=== PATIENT | male | born 1960 | race Caucasian/White ===

== ENCOUNTER 2024-08-24 14:18 | Inpatient (IN) | payer MEDICARE ==
[2024-08-24 14:55] LABS: BASOPHILS PERCENT AUTO 0.1 % (0.0-1.0); EOSINOPHILS PERCENT AUTO 0.1 % (0.0-6.0); HEMATOCRIT 44.2 % (42.0-52.0); HEMOGLOBIN 14.1 gm/dl (14.0-18.0); IMMATURE GRAN ABSOLUTE AUTO 0.03 K/mm3 (0.00-0.05); IMMATURE GRAN PERCENT AUTO 0.2 % (0.0-0.4); LYMPHOCYTES ABSOLUTE AUTO 0.9 K/mm3 (1.0-4.8); LYMPHOCYTES PERCENT AUTO 6.6 % (24.0-44.0); MEAN CORPUSCULAR HEMOGLOBIN 27.5 pg (28.0-32.0); MEAN CORPUSCULAR HGB CONC 31.9 g/dl (32.0-36.0); MEAN CORPUSCULAR VOLUME 86.3 fl (83.0-99.0); MEAN PLATELET VOLUME 9.6 fl (9.4-12.4); MONOCYTES ABSOLUTE AUTO 0.5 K/mm3 (0.0-0.8); MONOCYTES PERCENT AUTO 3.9 % (0.0-8.0); NEUTROPHILS PERCENT AUTO 89.1 % (41.0-71.0); PLATELET COUNT,PLT 295 K/mm3 (150-400); RED BLOOD CELL COUNT 5.12 M/mm3 (4.52-5.90); WHITE BLOOD CELL COUNT,WBC 13.46 K/mm3 (3.9-11.3)
[2024-08-24] MEDS: HYDROmorphone 0.5 MG/0.5 ML Syringe IVPUSH ONE ×2 (15:03→16:33)
[2024-08-24] MEDS: Sodium Chloride 0.9% 10 ML Syringe FLUSH PRN (15:04)
[2024-08-24] MEDS: Ondansetron 4 MG/2 ML SDV IVPUSH ONE (15:04)
[2024-08-24] MEDS: Sodium Chloride 0.9% 1,000 ML IV STA (15:04)
[2024-08-24 15:14] LABS: ALBUMIN 3.7 g/dl (3.4-5.0); ANION GAP 10.6 (5-15); BILIRUBIN TOTAL 0.4 mg/dL (0.2-1.0); BUN/CREATININE RATIO 17.3 (14-18); C-REACTIVE PROTEIN 0.82 mg/dL (<0.30); CALCIUM 9.5 mg/dL (8.5-10.1); CREATININE 1.5 mg/dL (0.7-1.3); EST CRCL DRUG DOSING (CG) 45.9 mL/min; POTASSIUM,K 4.6 mEq/L (3.5-5.1); PROTEIN TOTAL,TP 7.3 g/dl (6.4-8.2)
[2024-08-24] MEDS: Iopamidol 612 MG/ML 100 ML Bottle IVPUSH ONE (15:50)
[2024-08-24] MEDS: Sodium Chloride 0.9% 10 ML Syringe FLUSH ONE (15:50)
[2024-08-24] MEDS ORDERED: cefTRIAXone 1,000 MG in Sodium Chloride 0.9% 50 ML IV ONE (17:43)
[2024-08-24] MEDS ORDERED: Morphine PF 10 MG/10 ML SDV ONE (18:04)
[2024-08-24] MEDS: metroNIDAZOLE/Normal Saline 500 MG in Premix Bag 1 BAG IV ONE (18:10)
[2024-08-24 18:18] LABS: INR 1.03; PROTHROMBIN TIME 10.9 SECONDS (9.7-12.0)
[2024-08-24] MEDS: Heparin Sodium 5,000 Units/ML Vial SUBCUT ONE (18:29)
[2024-08-24] MEDS ORDERED: Midazolam 1 MG/ML 2 ML SDV ONE (18:32)
[2024-08-24] MEDS ORDERED: fentaNYL 250 MCG/5 ML SDV ONE (18:32)
[2024-08-24] MEDS ORDERED: dexmedeTOMIDine HCl 200 MCG/2 ML SDV ONE (18:32)
[2024-08-24] MEDS ORDERED: Rocuronium 50 MG/5 ML Vial ONE ×4 (18:33→21:53)
[2024-08-24] MEDS ORDERED: Sodium Chloride 0.9% 100 ML ONE ×2 (18:33→19:43)
[2024-08-24] MEDS ORDERED: propofoL 500 MG/50 ML 50 ML ONE ×3 (18:33→21:08)
[2024-08-24] MEDS ORDERED: Glycopyrrolate 0.2 MG/ML 2 ML SDV ONE (18:33)
[2024-08-24] MEDS ORDERED: Dexamethasone 4 MG/ML 5 ML MDV ONE (18:33)
[2024-08-24 18:46] LABS: APPEARANCE,URINE CLEAR (Clear); BILIRUBIN,URINE NEGATIVE (Negative); COLOR,URINE YELLOW (Yellow); GLUCOSE,URINE NEGATIVE (Negative); KETONES,URINE TRACE (Negative); LEUKOCYTE ESTERASE,URINE NEGATIVE (Negative); NITRITE,URINE NEGATIVE (Negative); OCCULT BLOOD,URINE NEGATIVE (Negative); PH,URINE 5.5 (5.0-8.0); PROTEIN,URINE NEGATIVE (Negative); UROBILINOGEN,URINE 0.2 (0.2-1.0)
[2024-08-24] MEDS ORDERED: Lactated Ringers 1,000 ML IV ONE (19:00)
[2024-08-24] MEDS ORDERED: cefTRIAXone 1 GM Vial ONE (19:00)
[2024-08-24] MEDS ORDERED: Ketamine 200 MG/20 ML MDV ONE (19:32)
[2024-08-24] MEDS ORDERED: ePHEDrine 50 MG/ML SDV ONE (19:42)
[2024-08-24] MEDS ORDERED: Phenylephrine 1% 10 MG/ML SDV ONE (19:44)
[2024-08-24] MEDS ORDERED: Lactated Ringers 1,000 ML ONE ×2 (20:11→21:35)
[2024-08-24] MEDS ORDERED: Sugammadex Sodium 200 MG/2 ML VIAL IV ONE (22:30)
[2024-08-24] MEDS ORDERED: Morphine 2 MG/ML SYRINGE IVPUSH PRN (23:01)
[2024-08-24] MEDS ORDERED: Morphine 4 MG/ML Syringe IVPUSH PRN ×2 (23:02→23:03)
[2024-08-24] MEDS ORDERED: Sodium Chloride 0.9% 10 ML Syringe FLUSH PRN (23:14)
[2024-08-24] MEDS ORDERED: Ondansetron 4 MG/2 ML SDV IVPUSH PRN (23:14)
[2024-08-24] MEDS ORDERED: HYDROmorphone 0.5 MG/0.5 ML Syringe IVPUSH PRN (23:14)
[2024-08-24] MEDS ORDERED: fentaNYL 100 MCG/2 ML SDV IVPUSH PRN (23:14)
[2024-08-24] MEDS ORDERED: Lactated Ringers 1,000 ML IV SCH (23:15)
[2024-08-24 23:34] LABS: BASOPHILS PERCENT AUTO 0.1 % (0.0-1.0); HEMATOCRIT 37.9 % (42.0-52.0); IMMATURE GRAN ABSOLUTE AUTO 0.06 K/mm3 (0.00-0.05); IMMATURE GRAN PERCENT AUTO 0.4 % (0.0-0.4); LYMPHOCYTES ABSOLUTE AUTO 0.5 K/mm3 (1.0-4.8); LYMPHOCYTES PERCENT AUTO 2.9 % (24.0-44.0); MEAN CORPUSCULAR HEMOGLOBIN 27.7 pg (28.0-32.0); MEAN CORPUSCULAR HGB CONC 31.7 g/dl (32.0-36.0); MEAN CORPUSCULAR VOLUME 87.5 fl (83.0-99.0); MEAN PLATELET VOLUME 9.8 fl (9.4-12.4); MONOCYTES ABSOLUTE AUTO 0.7 K/mm3 (0.0-0.8); MONOCYTES PERCENT AUTO 4.5 % (0.0-8.0); NEUTROPHILS ABSOLUTE AUTO 14.8 K/mm3 (1.8-7.7); NEUTROPHILS PERCENT AUTO 92.1 % (41.0-71.0); PLATELET COUNT,PLT 231 K/mm3 (150-400); RED BLOOD CELL COUNT 4.33 M/mm3 (4.52-5.90); WHITE BLOOD CELL COUNT,WBC 16.04 K/mm3 (3.9-11.3)
[2024-08-24 23:48] LABS: ANION GAP 10.3 (5-15); BUN/CREATININE RATIO 16.4 (14-18); CALCIUM 8.3 mg/dL (8.5-10.1); CREATININE 1.4 mg/dL (0.7-1.3); EST CRCL DRUG DOSING (CG) 49.18 mL/min; MAGNESIUM 2.1 mg/dL (1.8-2.4); POTASSIUM,K 4.3 mEq/L (3.5-5.1)
[2024-08-25] MEDS: Lactated Ringers 1,000 ML IV SCH (00:26)
[2024-08-25] MEDS: Piperacillin/Tazobactam 4.5 GM in Sodium Chloride 0.9% 100 ML IV ONE (00:29)
[2024-08-25] MEDS: Ketorolac 15 MG/ML SDV IVPUSH SCH (00:33)
[2024-08-25 00:35] LABS: SLIDE REVIEW ABNORMAL SMEAR
[2024-08-25] MEDS: Heparin Sodium 5,000 Units/ML Vial SUBCUT SCH (00:54)
[2024-08-25] MEDS: cefTRIAXone 1 GM Vial IV ONE (01:02)
[2024-08-25] MEDS ORDERED: Piperacillin/Tazobactam 4.5 GM in Sodium Chloride 0.9% 100 ML IV SCH ×2 (04:00→08:00)
[2024-08-25] MEDS: Lactated Ringers 500 ML IV ONE ×2 (05:15→10:56)
[2024-08-25] MEDS: Piperacillin/Tazobactam 4.5 GM in Sodium Chloride 0.9% 100 ML IV SCH ×3 (05:30→13:32)
[2024-08-25 05:38] LABS: BASOPHILS PERCENT AUTO 0.1 % (0.0-1.0); HEMATOCRIT 35.1 % (42.0-52.0); HEMOGLOBIN 11.2 gm/dl (14.0-18.0); IMMATURE GRAN ABSOLUTE AUTO 0.08 K/mm3 (0.00-0.05); IMMATURE GRAN PERCENT AUTO 0.5 % (0.0-0.4); LYMPHOCYTES ABSOLUTE AUTO 0.4 K/mm3 (1.0-4.8); LYMPHOCYTES PERCENT AUTO 2.5 % (24.0-44.0); MEAN CORPUSCULAR HEMOGLOBIN 27.9 pg (28.0-32.0); MEAN CORPUSCULAR HGB CONC 31.9 g/dl (32.0-36.0); MEAN CORPUSCULAR VOLUME 87.5 fl (83.0-99.0); MEAN PLATELET VOLUME 10.1 fl (9.4-12.4); MONOCYTES ABSOLUTE AUTO 0.7 K/mm3 (0.0-0.8); MONOCYTES PERCENT AUTO 3.9 % (0.0-8.0); NEUTROPHILS ABSOLUTE AUTO 15.8 K/mm3 (1.8-7.7); PLATELET COUNT,PLT 229 K/mm3 (150-400); RED BLOOD CELL COUNT 4.01 M/mm3 (4.52-5.90); WHITE BLOOD CELL COUNT,WBC 17.04 K/mm3 (3.9-11.3)
[2024-08-25 06:15] LABS: SLIDE REVIEW ABNORMAL SMEAR
[2024-08-25] MEDS ORDERED: Ondansetron 4 MG/2 ML SDV IVPUSH PRN (06:32)
[2024-08-25] MEDS: Pantoprazole 40 MG Vial IVPUSH SCH (08:57)
[2024-08-25] MEDS ORDERED: Sodium Chloride 0.9% 10 ML Syringe FLUSH SCH (09:00)
[2024-08-25 14:24] LABS: BASOPHILS PERCENT AUTO 0.1 % (0.0-1.0); HEMOGLOBIN 11.4 gm/dl (14.0-18.0); IMMATURE GRAN ABSOLUTE AUTO 0.09 K/mm3 (0.00-0.05); IMMATURE GRAN PERCENT AUTO 0.5 % (0.0-0.4); LYMPHOCYTES ABSOLUTE AUTO 0.6 K/mm3 (1.0-4.8); LYMPHOCYTES PERCENT AUTO 3.5 % (24.0-44.0); MEAN CORPUSCULAR HEMOGLOBIN 27.5 pg (28.0-32.0); MEAN CORPUSCULAR HGB CONC 31.7 g/dl (32.0-36.0); MEAN PLATELET VOLUME 9.7 fl (9.4-12.4); MONOCYTES ABSOLUTE AUTO 0.8 K/mm3 (0.0-0.8); MONOCYTES PERCENT AUTO 4.7 % (0.0-8.0); NEUTROPHILS ABSOLUTE AUTO 16.2 K/mm3 (1.8-7.7); NEUTROPHILS PERCENT AUTO 91.2 % (41.0-71.0); PLATELET COUNT,PLT 220 K/mm3 (150-400); RED BLOOD CELL COUNT 4.14 M/mm3 (4.52-5.90); WHITE BLOOD CELL COUNT,WBC 17.72 K/mm3 (3.9-11.3)
[2024-08-25 14:43] LABS: A/G RATIO 0.7 (1-2); ALBUMIN 2.6 g/dl (3.4-5.0); ANION GAP 9.5 (5-15); BILIRUBIN TOTAL 0.7 mg/dL (0.2-1.0); BUN/CREATININE RATIO 16.7 (14-18); CALCIUM 8.8 mg/dL (8.5-10.1); CREATININE 1.5 mg/dL (0.7-1.3); EST CRCL DRUG DOSING (CG) 45.9 mL/min; POTASSIUM,K 4.5 mEq/L (3.5-5.1); PROTEIN TOTAL,TP 6.1 g/dl (6.4-8.2)
[2024-08-25 15:01] LABS: SLIDE REVIEW ABNORMAL SMEAR
[2024-08-26 05:56] LABS: BASOPHILS PERCENT AUTO 0.1 % (0.0-1.0); EOSINOPHILS ABSOLUTE AUTO 0.1 K/mm3 (0.0-0.4); EOSINOPHILS PERCENT AUTO 0.4 % (0.0-6.0); HEMATOCRIT 31.7 % (42.0-52.0); IMMATURE GRAN ABSOLUTE AUTO 0.06 K/mm3 (0.00-0.05); IMMATURE GRAN PERCENT AUTO 0.4 % (0.0-0.4); LYMPHOCYTES PERCENT AUTO 6.8 % (24.0-44.0); MEAN CORPUSCULAR HEMOGLOBIN 27.9 pg (28.0-32.0); MEAN CORPUSCULAR HGB CONC 31.5 g/dl (32.0-36.0); MEAN CORPUSCULAR VOLUME 88.3 fl (83.0-99.0); MEAN PLATELET VOLUME 10.1 fl (9.4-12.4); MONOCYTES ABSOLUTE AUTO 0.8 K/mm3 (0.0-0.8); MONOCYTES PERCENT AUTO 5.8 % (0.0-8.0); NEUTROPHILS ABSOLUTE AUTO 12.3 K/mm3 (1.8-7.7); NEUTROPHILS PERCENT AUTO 86.5 % (41.0-71.0); PLATELET COUNT,PLT 202 K/mm3 (150-400); RED BLOOD CELL COUNT 3.59 M/mm3 (4.52-5.90); WHITE BLOOD CELL COUNT,WBC 14.22 K/mm3 (3.9-11.3)
[2024-08-26 06:14] LABS: ANION GAP 8.2 (5-15); BUN/CREATININE RATIO 18.5 (14-18); CALCIUM 8.6 mg/dL (8.5-10.1); CREATININE 1.3 mg/dL (0.7-1.3); EST CRCL DRUG DOSING (CG) 52.96 mL/min; POTASSIUM,K 4.2 mEq/L (3.5-5.1)
[2024-08-26] MEDS: Lactated Ringers 1,000 ML IV SCH (09:03)
[2024-08-26 20:37] LABS: APPEARANCE,URINE CLOUDY (Clear); BILIRUBIN,URINE 2+ (Negative); COLOR,URINE AMBER (Yellow); GLUCOSE,URINE NEGATIVE (Negative); KETONES,URINE 4+ (Negative); LEUKOCYTE ESTERASE,URINE NEGATIVE (Negative); NITRITE,URINE NEGATIVE (Negative); OCCULT BLOOD,URINE 3+ (Negative); PROTEIN,URINE 3+ (Negative); UROBILINOGEN,URINE 0.2 (0.2-1.0)
[2024-08-26 20:47] LABS: RBC,URINE TOO NUMEROUS TO CNT /hpf (0-5); SQUAMOUS EPITHELIAL CELLS,UR 0-5 /hpf (0-5); WBC,URINE 0-5 /hpf (0-5)
[2024-08-26 20:48] LABS: BACTERIA,URINE MODERATE /hpf (FEW); MUCUS,URINE FEW /hpf (FEW)
[2024-08-27] MEDS: 50% Dextrose in Water 50 ML Syringe IVPUSH PRN (00:43)
[2024-08-27 09:25] LABS: BASOPHILS ABSOLUTE AUTO 0.1 K/mm3 (0.0-0.2); BASOPHILS PERCENT AUTO 0.4 % (0.0-1.0); EOSINOPHILS ABSOLUTE AUTO 0.3 K/mm3 (0.0-0.4); EOSINOPHILS PERCENT AUTO 2.9 % (0.0-6.0); HEMATOCRIT 34.4 % (42.0-52.0); IMMATURE GRAN ABSOLUTE AUTO 0.05 K/mm3 (0.00-0.05); IMMATURE GRAN PERCENT AUTO 0.4 % (0.0-0.4); LYMPHOCYTES ABSOLUTE AUTO 0.9 K/mm3 (1.0-4.8); LYMPHOCYTES PERCENT AUTO 8.1 % (24.0-44.0); MEAN CORPUSCULAR HEMOGLOBIN 27.9 pg (28.0-32.0); MEAN CORPUSCULAR VOLUME 87.3 fl (83.0-99.0); MEAN PLATELET VOLUME 9.8 fl (9.4-12.4); MONOCYTES ABSOLUTE AUTO 0.8 K/mm3 (0.0-0.8); MONOCYTES PERCENT AUTO 7.2 % (0.0-8.0); NEUTROPHILS ABSOLUTE AUTO 9.2 K/mm3 (1.8-7.7); PLATELET COUNT,PLT 228 K/mm3 (150-400); RED BLOOD CELL COUNT 3.94 M/mm3 (4.52-5.90); WHITE BLOOD CELL COUNT,WBC 11.31 K/mm3 (3.9-11.3)
[2024-08-27 09:44] LABS: ANION GAP 13.2 (5-15); BUN/CREATININE RATIO 16.7 (14-18); CALCIUM 8.7 mg/dL (8.5-10.1); CREATININE 1.2 mg/dL (0.7-1.3); EST CRCL DRUG DOSING (CG) 57.38 mL/min; POTASSIUM,K 4.2 mEq/L (3.5-5.1)
[2024-08-27] MEDS: Dextrose 5%-Lactated Ringers 1,000 ML IV SCH (10:57)
[2024-08-28 04:29] LABS: BASOPHILS PERCENT AUTO 0.5 % (0.0-1.0); EOSINOPHILS ABSOLUTE AUTO 0.4 K/mm3 (0.0-0.4); HEMATOCRIT 32.2 % (42.0-52.0); HEMOGLOBIN 10.3 gm/dl (14.0-18.0); IMMATURE GRAN ABSOLUTE AUTO 0.03 K/mm3 (0.00-0.05); IMMATURE GRAN PERCENT AUTO 0.4 % (0.0-0.4); LYMPHOCYTES ABSOLUTE AUTO 1.2 K/mm3 (1.0-4.8); LYMPHOCYTES PERCENT AUTO 14.1 % (24.0-44.0); MEAN CORPUSCULAR HEMOGLOBIN 27.3 pg (28.0-32.0); MEAN CORPUSCULAR VOLUME 85.4 fl (83.0-99.0); MEAN PLATELET VOLUME 9.9 fl (9.4-12.4); MONOCYTES ABSOLUTE AUTO 0.8 K/mm3 (0.0-0.8); MONOCYTES PERCENT AUTO 9.7 % (0.0-8.0); NEUTROPHILS ABSOLUTE AUTO 5.8 K/mm3 (1.8-7.7); NEUTROPHILS PERCENT AUTO 70.3 % (41.0-71.0); PLATELET COUNT,PLT 222 K/mm3 (150-400); RED BLOOD CELL COUNT 3.77 M/mm3 (4.52-5.90); WHITE BLOOD CELL COUNT,WBC 8.25 K/mm3 (3.9-11.3)
[2024-08-28 05:00] LABS: ANION GAP 9.9 (5-15); BUN/CREATININE RATIO 11.5 (14-18); CALCIUM 8.6 mg/dL (8.5-10.1); CREATININE 1.3 mg/dL (0.7-1.3); EST CRCL DRUG DOSING (CG) 52.96 mL/min; POTASSIUM,K 3.9 mEq/L (3.5-5.1)
[2024-08-28] MEDS ORDERED: Acetaminophen/Codeine 300-30 MG Tab PO PRN (07:48)
[2024-08-28] MEDS: Amoxicillin/Clavulanate K 875-125 MG Tab PO SCH (08:50)
[2024-08-29] MEDS: atorvaSTATin 20 MG Tab PO SCH (08:56)
[2024-08-29] MEDS ORDERED: Melatonin 3 MG Tab PO SCH (21:00)
[2024-08-29] MEDS ORDERED: Amitriptyline 25 MG Tab PO SCH (21:00)
== END 2024-08-29 15:38 | disposition home or self-care (01) | DRG 329 ==
LOC: JD.ED 14:18 → JD.SDS 18:20 → JD.ICU 22:50 → JD.MS 08-25 00:02 → JD.SDS 08-25 00:03
PROVIDERS: ADMIT Surgery; ATTEND Surgery
PROC: 0DTF0ZZ Resection of Right Large Intestine, Open Approach (ICD-10-PCS; principal; 2024-08-24 18:50)
DX: C18.2 Malignant neoplasm of ascending colon (principal); R10.31 Right lower quadrant pain; C78.5 Secondary malignant neoplasm of large intestine and rectum; K63.1 Perforation of intestine (nontraumatic); Z91.09 Other allergy status, other than to drugs and biological substances; K56.609 Unspecified intestinal obstruction, unspecified as to partial versus complete obstruction; K91.89 Other postprocedural complications and disorders of digestive system; K56.7 Ileus, unspecified; C77.2 Secondary and unspecified malignant neoplasm of intra-abdominal lymph nodes; H54.7 Unspecified visual loss; E78.5 Hyperlipidemia, unspecified; I10 Essential (primary) hypertension; N40.1 Benign prostatic hyperplasia with lower urinary tract symptoms; R33.8 Other retention of urine; Z91.018 Allergy to other foods; Z79.899 Other long term (current) drug therapy
CPT/HCPCS: 36415; 74018; 74177; 80048; 80053; 81003; 82378; 83735; 85025 ×2; 85610; 85730; 86140; 86850; 86900; 86901; 87070; 87075; 87077; 87186; 87205; 96361; 96365; 96372; 96375; 96376; 99285; J0696; J1100; J1596; J1644; J1836; J2250; J2274; J2371; J2405; J2704 ×3; J3010; J3490; J7030; J7120 ×3; Q9967; 00790; 36556; 51798; 81001; 82947; 87086; 94760; 94761; 96523; 99140; A9270-GY; C1758; J1171; J1885; J2470; J2543; J7121